=== PATIENT | female | born 1970 | race Caucasian/White ===

== ENCOUNTER → 2017-01-07 | Outpatient (CLI) | payer OTHER | LOC: FIMAGING 10:04 | DX: Z12.31 Encounter for screening mammogram for malignant neoplasm of breast (principal) | CPT/HCPCS: G0202 ==

== ENCOUNTER → 2018-06-08 | Outpatient (CLI) | payer OTHER | LOC: FIMAGING 11:28 | PROVIDERS: ATTEND Obstetrics & Gynecology | DX: Z12.31 Encounter for screening mammogram for malignant neoplasm of breast (principal) ==

== ENCOUNTER → 2018-10-02 | Outpatient (CLI) | payer OTHER | LOC: FIMAGING 14:45 | PROVIDERS: ATTEND Physician Assistant Medical | DX: M25.861 Other specified joint disorders, right knee (principal); M25.862 Other specified joint disorders, left knee; M25.851 Other specified joint disorders, right hip; M25.852 Other specified joint disorders, left hip ==